=== PATIENT | male | born 1985 | race Two or more races ===

== ENCOUNTER 2023-11-05 07:14 | Inpatient (IN) | payer MEDICAID, OTHER ==
[~2023-11-05] VITALS: Ht 167.6 cm; Wt 103.9 kg
[2023-11-05 07:57] LABS: Basophils # (auto) 0.1 10 ^3/uL (0-0.2); Basophils % (auto) 0.8 % (0.0-2.0); Eosinophils % (auto) 0.4 % (0.0-7.0); Hemoglobin 13.7 g/dL (13.5-17.5); Mean Corpuscular Hgb Conc. 34.6 g/dL (32.0-36.0); Nucleated Red Blood Cells % 0.2 %; Red Cell Distribution Width 15.4 % (11.8-14.3)
[2023-11-05 07:59] LABS: Eosinophils # (auto) 0 10 ^3/uL (0-0.8); Hematocrit 39.6 % (41.0-53.0); Lymphocytes % (auto) 7.5 % (10.0-50.0); Mean Corpuscular Hemoglobin 35.1 pg (28.0-32.0); Mean Corpuscular Volume 101.3 fL (80.0-100.0); Monocytes % (auto) 7.6 % (0.0-12.0); Neutrophils # (auto) 10.8 10 ^3/uL (1.6-8.6); Neutrophils % (auto) 83.7 % (37.0-80.0); White Blood Cell 12.9 10^3/uL (4.4-10.8)
[2023-11-05 08:00] VITALS: PULSE 117; RESP 20; O2SAT 94
[2023-11-05 08:02] LABS: Anion Gap 16 (5-15); Carbon Dioxide 21 mmol/L (20-30); Chloride 95 mmol/L (98-107); Potassium 3.2 mmol/L (3.5-5.1); Sodium 132 mmol/L (136-145)
[2023-11-05 08:03] LABS: Calcium 9.6 mg/dL (8.5-10.1)
[2023-11-05 08:08] LABS: BUN/Creatinine Ratio 11.6 (10.0-20.0); Blood Alcohol < 3.0 mg/dL (<10); Blood Urea Nitrogen 11 mg/dL (9-23)
[2023-11-05 08:11] LABS: Amphetamine Screen, Urine Neg (NEGATIVE); Barbiturate Scree,Urine Neg (NEGATIVE); Benzodiazephine Screen, Urine Neg (NEGATIVE); Cannabinoid Screen, Urine Neg (NEGATIVE); Cocaine Screen, Urine Neg (NEGATIVE); Opiate Scree,Urine Neg (NEGATIVE); Phencyclidine Screen, Urine Neg (NEGATIVE)
[2023-11-05 08:12] LABS: Glucose 402 mg/dL (74-106)
[2023-11-05] MEDS: SODIUM CHLORIDE 0.9% 1,000 ML IVB ONE (08:13)
[2023-11-05] MEDS: POTASSIUM CHL 20MEQ/100ML 100 ML IV ONE (10:47)
[2023-11-05] MEDS: InsuLIN REG 1unit/0.01ml Soln (100units/ml) IV ONE (10:48)
[2023-11-05] MEDS: LORazepam 2MG/ML-1ML VIAL IV ONE (10:52)
[2023-11-05] MEDS ORDERED: DEXTROSE (50%) 50ML SYRG IV PRN ×2 (14:45→15:15)
[2023-11-05] MEDS ORDERED: ONDANSETRON HCL 4 MG/2 ML VIAL IV PRN (14:45)
[2023-11-05] MEDS ORDERED: SODIUM CHLORIDE 0.9% 1,000 ML IV SCH (14:45)
[2023-11-05] MEDS ORDERED: MORPHINE SULFATE INJ 2 MG/ml SYRG IV PRN (14:45)
[2023-11-05] MEDS ORDERED: SODIUM CHLORIDE 0.9% 2,000 ML IV ONE (14:45)
[2023-11-05] MEDS ORDERED: hydrALAZINE HCL 20 MG/ML VL IV PRN (14:45)
[2023-11-05] MEDS ORDERED: NITROGLYCERIN 0.4 MG SL TAB SL PRN (14:45)
[2023-11-05] MEDS: cefTRIAXone 1GM/50ML D5W 50 ML IV ONE (15:05)
[2023-11-05] MEDS: SODIUM CHLORIDE 0.9% 1,000 ML IV ONE (15:05)
[2023-11-05 15:17] LABS: Magnesium 2.1 mg/dL (1.6-2.6)
[2023-11-05] MEDS: SODIUM CHLORIDE 0.9% 1,000 ML IV SCH (16:04)
[2023-11-05] MEDS: ACCU-CHEK COMFORT CURVE STRIP VI SCH (16:52)
[2023-11-05] MEDS: InsuLIN REG 1unit/0.01ml Soln (100units/ml) SC SCH ×2 (16:52→23:53)
[2023-11-05] MEDS ORDERED: ACCU-CHEK COMFORT CURVE STRIP VI SCH (17:00)
[2023-11-05] MEDS ORDERED: InsuLIN REG 1unit/0.01ml Soln (100units/ml) SC SCH (17:00)
[2023-11-05] MEDS: FOLIC ACID 1 MG, MAGNESIUM SULF SDV 50% 8 MEQ, MULTIPLE VITAMIN 10 ML, THIAMINE INJ 100... INJ SCH (18:37)
[2023-11-05 20:00] VITALS: PULSE 115; RESP 20; O2SAT 94
[2023-11-05] MEDS: LORazepam 2MG/ML-1ML VIAL IV PRN (21:32)
[2023-11-05 23:21] VITALS: BP 137/96; PULSE 111; RESP 17; RESP 18; TEMP 98.7; O2SAT 96
[2023-11-05] MEDS ORDERED: ATOR40TA52 PO (23:40)
[2023-11-05] MEDS ORDERED: METF-370 PO (23:40)
[2023-11-05] MEDS ORDERED: VENL75CA78 PO (23:40)
[2023-11-06] VITALS (8 sets, daily range): BP systolic 122–140; BP diastolic 59–99; PULSE 60–121; RESP 17–20; TEMP 97.8–101.3; O2SAT 94–99
[2023-11-06 05:54] LABS: Basophils # (auto) 0.1 10 ^3/uL (0-0.2); Eosinophils # (auto) 0.2 10 ^3/uL (0-0.8); Lymphocytes # (auto) 1.2 10 ^3/uL (0.4-5.4)
[2023-11-06 05:57] LABS: Basophils % (auto) 0.8 % (0.0-2.0); Eosinophils % (auto) 2.2 % (0.0-7.0); Hematocrit 35.4 % (41.0-53.0); Hemoglobin 12.3 g/dL (13.5-17.5); Lymphocytes % (auto) 10.7 % (10.0-50.0); Mean Corpuscular Hemoglobin 34.8 pg (28.0-32.0); Mean Corpuscular Hgb Conc. 34.7 g/dL (32.0-36.0); Mean Corpuscular Volume 100.2 fL (80.0-100.0); Monocytes # (auto) 0.9 10 ^3/uL (0-1.3); Neutrophils # (auto) 8.6 10 ^3/uL (1.6-8.6); Neutrophils % (auto) 78.3 % (37.0-80.0); Nucleated Red Blood Cells % 0.2 %; Red Blood Cells 3.53 10^6/uL (4.5-5.90); Red Cell Distribution Width 15.6 % (11.8-14.3)
[2023-11-06 06:18] LABS: Alanine Aminotransferase 36 U/L (7-40); Albumin 3.4 g/dL (3.2-4.8); Alkaline Phosphatase 220 U/L (46-116); Anion Gap 11 (5-15); Aspartate Aminotransferase 200 U/L (13-40); BUN/Creatinine Ratio 11.7 (10.0-20.0); Bilirubin, Total 7.4 mg/dL (0.2-1.0); Blood Urea Nitrogen 12 mg/dL (9-23); Calcium 8.2 mg/dL (8.7-10.4); Carbon Dioxide 24 mmol/L (20-30); Chloride 103 mmol/L (98-107); Sodium 138 mmol/L (136-145); Total Protein 6.8 g/dL (5.7-8.2)
[2023-11-06 06:19] LABS: Glucose 187 mg/dL (74-106)
[2023-11-06 06:22] LABS: Potassium 2.5 mmol/L (3.5-5.1)
[2023-11-06] MEDS: ENOXAPARIN SOD 40 MG/0.4 ML SYRINGE SC SCH (09:07)
[2023-11-06] MEDS: cefTRIAXone 1GM/50ML D5W 50 ML IV SCH (09:07)
[2023-11-06] MEDS: ACETAMINOPHEN 325 MG TAB PO PRN (21:31)
[2023-11-07] VITALS (10 sets, daily range): BP systolic 123–155; BP diastolic 60–87; PULSE 95–115; RESP 18–20; TEMP 97.5–99.8; O2SAT 95–98
[2023-11-07] MEDS: PANTOPRAZOLE 40 MG TAB PO SCH (06:10)
[2023-11-07 11:08] LABS: Chloride 101 mmol/L (98-107); Potassium 2.9 mmol/L (3.5-5.1); Sodium 134 mmol/L (136-145)
[2023-11-07 11:09] LABS: Anion Gap 9 (5-15); Carbon Dioxide 24 mmol/L (20-30)
[2023-11-07 11:10] LABS: Calcium 8.8 mg/dL (8.7-10.4)
[2023-11-07 11:14] LABS: Glucose 248 mg/dL (74-106)
[2023-11-07 11:15] LABS: Blood Urea Nitrogen 7 mg/dL (9-23)
[2023-11-07 11:23] LABS: BUN/Creatinine Ratio 8.8 (10.0-20.0)
[2023-11-07] MEDS: POTASSIUM EFFERVESENT TAB 25 MEQ GT ONE (12:08)
[2023-11-07] MEDS: POTASSIUM CHLORIDE 40 MEQ, LIDOCAINE 1% (LOCAL ANESTH.) 4 ML in SODIUM CHL 0.9% 250 ML IV ONE (13:36)
[2023-11-08] VITALS (9 sets, daily range): BP systolic 126–136; BP diastolic 76–95; PULSE 93–112; RESP 16–19; TEMP 98.1–100.2; O2SAT 94–97
[2023-11-08 06:55] LABS: Basophils # (auto) 0.1 10 ^3/uL (0-0.2); Basophils % (auto) 1.1 % (0.0-2.0); Eosinophils # (auto) 0.3 10 ^3/uL (0-0.8); Eosinophils % (auto) 2.9 % (0.0-7.0); Hematocrit 34.8 % (41.0-53.0); Hemoglobin 12.2 g/dL (13.5-17.5); Lymphocytes # (auto) 1.2 10 ^3/uL (0.4-5.4); Lymphocytes % (auto) 11.1 % (10.0-50.0); Mean Corpuscular Hemoglobin 35.1 pg (28.0-32.0); Mean Corpuscular Hgb Conc. 34.9 g/dL (32.0-36.0); Mean Corpuscular Volume 100.6 fL (80.0-100.0); Monocytes % (auto) 9.5 % (0.0-12.0); Neutrophils # (auto) 7.9 10 ^3/uL (1.6-8.6); Neutrophils % (auto) 75.4 % (37.0-80.0); Nucleated Red Blood Cells % 0.1 %; Red Blood Cells 3.46 10^6/uL (4.5-5.90); White Blood Cell 10.4 10^3/uL (4.4-10.8)
[2023-11-08 07:19] LABS: Alanine Aminotransferase 32 U/L (7-40); Alkaline Phosphatase 205 U/L (46-116); Anion Gap 9 (5-15); Calcium 8.4 mg/dL (8.7-10.4); Carbon Dioxide 24 mmol/L (20-30); Chloride 104 mmol/L (98-107); Potassium 2.7 mmol/L (3.5-5.1); Sodium 137 mmol/L (136-145)
[2023-11-08 07:20] LABS: BUN/Creatinine Ratio 8.7 (10.0-20.0); Blood Urea Nitrogen 6 mg/dL (9-23); Glucose 159 mg/dL (74-106)
[2023-11-08 07:21] LABS: Albumin 3.1 g/dL (3.2-4.8); Aspartate Aminotransferase 134 U/L (13-40)
[2023-11-08 07:22] LABS: Bilirubin, Total 7.9 mg/dL (0.2-1.0); Total Protein 6.2 g/dL (5.7-8.2)
[2023-11-08 08:28] LABS: Hepatitis B Surface Antigen Negative (Negative)
[2023-11-08 08:48] LABS: Hepatitis A Ab IgM Negative
[2023-11-08 08:49] LABS: Hepatitis B Core IgM Negative; Hepatitis C Antibody Negative (Negative)
[2023-11-08] MEDS ORDERED: POTASSIUM EFFERVESENT TAB 25 MEQ GT ONE (11:00)
[2023-11-08] MEDS: MAGNESIUM SULFATE 1GM/100ML 100 ML IV ONE (11:00)
[2023-11-08] MEDS: POTASSIUM CHLORIDE 60 MEQ, LIDOCAINE 1% (LOCAL ANESTH.) 6 ML in SODIUM CHL 0.9% 500 ML IV ONE (11:00)
[2023-11-08] MEDS: POTASSIUM EFFERVESENT TAB 25 MEQ PO ONE (13:40)
[2023-11-09 01:00] VITALS: BP 124/83; PULSE 104; RESP 17; TEMP 99.8; O2SAT 97
[2023-11-09 05:00] VITALS: BP 146/95; PULSE 106; RESP 18; TEMP 100; O2SAT 96
[2023-11-09 06:03] LABS: Basophils # (auto) 0.1 10 ^3/uL (0-0.2); Hemoglobin 12.2 g/dL (13.5-17.5); Lymphocytes # (auto) 1.3 10 ^3/uL (0.4-5.4); Monocytes # (auto) 1.2 10 ^3/uL (0-1.3)
[2023-11-09 06:06] LABS: Basophils % (auto) 1.3 % (0.0-2.0); Eosinophils # (auto) 0.4 10 ^3/uL (0-0.8); Eosinophils % (auto) 3.6 % (0.0-7.0); Hematocrit 34.7 % (41.0-53.0); Lymphocytes % (auto) 13.3 % (10.0-50.0); Mean Corpuscular Hemoglobin 35.4 pg (28.0-32.0); Mean Corpuscular Hgb Conc. 35.2 g/dL (32.0-36.0); Mean Corpuscular Volume 100.6 fL (80.0-100.0); Monocytes % (auto) 11.8 % (0.0-12.0); Neutrophils # (auto) 6.9 10 ^3/uL (1.6-8.6); Red Blood Cells 3.45 10^6/uL (4.5-5.90); Red Cell Distribution Width 16.2 % (11.8-14.3); White Blood Cell 9.9 10^3/uL (4.4-10.8)
[2023-11-09 06:19] LABS: Alanine Aminotransferase 32 U/L (7-40); Alkaline Phosphatase 196 U/L (46-116); Anion Gap 9 (5-15); BUN/Creatinine Ratio 9.7 (10.0-20.0); Blood Urea Nitrogen 7 mg/dL (9-23); Calcium 8.8 mg/dL (8.7-10.4); Carbon Dioxide 24 mmol/L (20-30); Chloride 104 mmol/L (98-107); Glucose 151 mg/dL (74-106); Potassium 3.1 mmol/L (3.5-5.1); Sodium 137 mmol/L (136-145)
[2023-11-09 06:20] LABS: Albumin 3.1 g/dL (3.2-4.8); Aspartate Aminotransferase 128 U/L (13-40)
[2023-11-09 06:21] LABS: Bilirubin, Total 7.8 mg/dL (0.2-1.0); Total Protein 6.3 g/dL (5.7-8.2)
[2023-11-09 08:00] VITALS: PULSE 103; PULSE 99; RESP 18; O2SAT 96
[2023-11-09] MEDS: POTASSIUM EFFERVESENT TAB 25 MEQ PO ONE (08:55)
[2023-11-09 09:00] VITALS: BP 128/85; PULSE 104; RESP 20; TEMP 99.9; O2SAT 96
[2023-11-09] MEDS: POTASSIUM CHL 20MEQ/100ML 100 ML IV SCH (09:36)
[2023-11-09 10:39] LABS: Urine Bacteria None Seen /hpf (None Seen)
[2023-11-09 10:52] LABS: Urine Blood Negative /uL (Negative); Urine Clarity Clear (Clear); Urine Color Dark-Yellow (Yellow); Urine Protein, UAD Negative (Negative); Urine Specific Gravity 1.012 (1.001-1.035); Urine Urobilinogen 3 mg/dL (Negative); Urine WBC 1 /hpf (0 - 3); Urine pH 7.5 (5.0-9.0)
[2023-11-09] MEDS ORDERED: MULT-1018 PO ×2 (13:12→13:47)
[2023-11-09] MEDS ORDERED: MAGN400T40 PO ×2 (13:12→13:47)
[2023-11-09] MEDS ORDERED: ATOR40TA52 PO (13:12)
[2023-11-09] MEDS ORDERED: METF-370 PO ×2 (13:12→13:47)
[2023-11-09] MEDS ORDERED: THIA100T10 PO ×2 (13:12→13:47)
[2023-11-09] MEDS ORDERED: POTA-180 PO ×2 (13:12→13:47)
[2023-11-09] MEDS ORDERED: FOLI-119 PO ×2 (13:12→13:47)
[2023-11-09] MEDS ORDERED: VENL75CA78 PO (13:12)
[2023-11-09] MEDS ORDERED: ATOR20TA50 PO (13:47)
== END 2023-11-09 17:30 | disposition home or self-care (01) | DRG 53 ==
LOC: ER 07:14 → EDBD 07:14 → TELE 14:35 → TELE-E-ADS 22:56
PROVIDERS: ADMIT Internal Medicine Geriatric Medicine; ATTEND Internal Medicine Geriatric Medicine
DX: G40.509 Epileptic seizures related to external causes, not intractable, without status epilepticus (principal); D84.81 Immunodeficiency due to conditions classified elsewhere; E87.1 Hypo-osmolality and hyponatremia; E87.8 Other disorders of electrolyte and fluid balance, not elsewhere classified; E11.65 Type 2 diabetes mellitus with hyperglycemia; D53.9 Nutritional anemia, unspecified; E66.01 Morbid (severe) obesity due to excess calories; E78.5 Hyperlipidemia, unspecified; E87.6 Hypokalemia; F10.139 Alcohol abuse with withdrawal, unspecified; I10 Essential (primary) hypertension; Y90.9 Presence of alcohol in blood, level not specified; Z68.37 Body mass index [BMI] 37.0-37.9, adult
CPT/HCPCS: 36415; 70450; 71045; 76705; 80048; 80053; 80061; 80074; 80307; 80320; 81001; 82550; 82962; 83036; 83605; 83735; 84443; 85025; 87040; 96361; 96365; 96375; G0378; J1815; J2001; J3480